=== PATIENT | female | born 1940 | race Caucasian/White ===

== ENCOUNTER 2017-07-28 16:49 | Emergency (ER) | payer MEDICAID, MEDICARE ==
[~2017-07-28] VITALS: Ht 157.5 cm; Wt 81.0 kg
[~2017-07-28 16:49] MED LIST: BACTDSB PO; FERR-72 PO; METO25 PO; OLAN7.5T9 PO; PARO-37 PO
[2017-07-28] MEDS ORDERED: ASPI81 PO (17:10)
[2017-07-28] MEDS ORDERED: LISI-659 PO (17:10)
[2017-07-28] MEDS ORDERED: MULT1TAB71 PO (17:10)
[2017-07-28] MEDS ORDERED: METF500T4 PO (17:10)
[2017-07-28] MEDS ORDERED: GLIP10 PO (17:10)
[2017-07-28 17:53] LABS: HEMATOCRIT 21.8 % (36-46); MEAN CORPUSCULAR HEMOGLOBIN 19.7 pg (26.0-34.0); MEAN CORPUSCULAR HGB CONC 30.7 G/dL (31.0-37.0); MEAN CORPUSCULAR VOLUME 64 fL (80-100); PLATELET COUNT (AUTO) 170 K/uL (150-450); RED BLOOD CELL COUNT(AUTO) 3.41 MIL/uL (4.00-5.20); WHITE BLOOD COUNT (AUTO) 4.4 K/uL (4.5-11.0)
[2017-07-28 17:58] LABS: ANION GAP 5 mmol/L (8-16); CALCIUM, TOTAL 8.7 mg/dL (8.8-10.5); CARBON DIOXIDE 28 mmol/L (22-29); CHLORIDE 108 mmol/L (98-107); CREATININE 0.87 mg/dL (0.60-1.30); GLOMERULAR FILTR. RATE CALC > 60 mL/min (>60); SODIUM SERUM 141 mmol/L (136-145); UREA NITROGEN, BLOOD 14 mg/dL (7-18)
[2017-07-28 18:02] LABS: HEMOGLOBIN 6.7 g/dL (12.0-16.0)
[2017-07-28 18:37] LABS: BAND NEUTROPHILS % (MANUAL) 1 % (1-5); EOSINOPHILS % (MANUAL) 1 % (1-6); LYMPHOCYTES % (MANUAL) 26 % (22-44); REACTIVE LYMPHOCYTES 3 % (0-0); TOTAL CELLS COUNTED 100
[2017-07-28 18:45] LABS: RBC MORPHOLOGY COMMENT ABNORMAL RBC MORPH
[2017-07-28 20:10] VITALS: BP 185/76
[2017-07-28 20:25] VITALS: BP 180/71
[2017-07-28 20:40] VITALS: BP 184/78
[2017-07-28 21:10] VITALS: BP 174/84
[2017-07-28 21:40] VITALS: BP 167/79
[2017-07-28 22:07] VITALS: BP 169/89
== END 2017-07-28 22:16 | disposition home or self-care (01) ==
LOC: EMS 16:52
DX: D64.9 Anemia, unspecified (principal); E11.9 Type 2 diabetes mellitus without complications; I10 Essential (primary) hypertension; Z79.82 Long term (current) use of aspirin
CPT/HCPCS: 36415; 36430; 80048; 85025; 86850; 86900; 86901; 86920; 99285; P9016

== ENCOUNTER 2017-09-02 14:19 | Inpatient (IN) | payer MEDICAID, MEDICARE ==
[~2017-09-02] VITALS: Ht 165.1 cm; Wt 78.1 kg
[~2017-09-02 14:19] MED LIST changes: +ASPI81 PO; -BACTDSB PO; +GLIP10 PO; +LISI-659 PO; +METF500T4 PO; +MULT1TAB71 PO
[2017-09-02 14:32] LABS: GLUCOSE,POINT OF CARE 201 MG/DL (70-110)
[2017-09-02 15:41] LABS: BASOPHILS % (AUTO) 0.1 % (0.0-2.0); EOSINOPHILS % (AUTO) 0.9 % (1.0-6.0); HEMATOCRIT 27.8 % (36-46); HEMOGLOBIN 8.8 g/dL (12.0-16.0); LYMPHOCYTES # (AUTO) 0.9 K/uL (1.0-4.8); MEAN CORPUSCULAR HEMOGLOBIN 24.3 pg (26.0-34.0); MEAN CORPUSCULAR HGB CONC 31.8 G/dL (31.0-37.0); MEAN CORPUSCULAR VOLUME 76 fL (80-100); MONOCYTES # (AUTO) 0.3 K/uL (0.1-1.0); NEUTROPHILS # (AUTO) 2.9 K/uL (1.8-7.7); PLATELET COUNT (AUTO) 170 K/uL (150-450); RED BLOOD CELL COUNT(AUTO) 3.64 MIL/uL (4.00-5.20); RED CELL DISTRIBUTION WIDTH 31.9 % (11.5-14.5)
[2017-09-02 15:44] LABS: CALCIUM, TOTAL 8.2 mg/dL (8.8-10.5); CREATININE 0.93 mg/dL (0.60-1.30); POTASSIUM 3.4 mmol/L (3.5-5.1)
[2017-09-02 15:57] LABS: ALBUMIN 2.1 g/dL (3.4-5.0); INR 1.1 (0.9-1.1); PROTHROMBIN TIME 11.8 SEC (9.4-11.6); TOTAL PROTEIN, SERUM 6.4 g/dL (6.4-8.2)
[2017-09-02 18:22] LABS: APPEARANCE,URINE TURBID (CLEAR); GLUCOSE, URINE (UA) NEGATIVE (NEGATIVE); KETONES,URINE NEGATIVE (NEGATIVE); LEUKOCYTE ESTERASE ,URINE MODERATE (NEGATIVE); NITRATE,URINE POSITIVE (NEGATIVE); OCCULT BLOOD,URINE MODERATE (NEGATIVE); PROTEIN,URINE SEE CONFIRM (NEGATIVE); UROBILINOGEN,URINE 0.2 mg/dL (<=1.0)
[2017-09-02 18:27] LABS: BILIRUBIN,URINE PRELIM. POSITIVE (NEGATIVE)
[2017-09-02 18:35] LABS: SULFOSALICYLIC ACID,URINE 2+ (Negative)
[2017-09-02 18:36] LABS: BACTERIA,URINE Many /HPF (None Seen); WBC,URINE >100 /HPF (0-5)
[2017-09-02] MEDS ORDERED: PANTOPRAZOLE SODIUM 40 MG/VIAL IVP ONE (18:45)
[2017-09-02] MEDS ORDERED: SODIUM CHLORIDE 0.9% 1,000 ML IV ONE (18:45)
[2017-09-02] MEDS ORDERED: LEVOFLOXACIN 500 MG/D5% WATER 100 ML IV ONE (18:45)
[2017-09-02] MEDS ORDERED: MORPHINE SULFATE 4 MG/ML SYRINGE IVP PRN (20:15)
[2017-09-02] MEDS ORDERED: 0.9% SODIUM CHLORIDE 10 ML SYRINGE IVP PRN (20:15)
[2017-09-02] MEDS ORDERED: ONDANSETRON HCL 4 MG/2 ML VIAL IVP PRN ×2 (20:15→23:30)
[2017-09-02] MEDS ORDERED: ACETAMINOPHEN 325 MG TABLET PO PRN (20:15)
[2017-09-02 21:11] VITALS: BP 154/84
[2017-09-02] MEDS: ZOLPIDEM TARTRATE 5 MG TABLET PO PRN (22:20)
[2017-09-02] MEDS ORDERED: MAGNESIUM HYDROXIDE SUSPENSION 30 ML UDCUP PO PRN (23:30)
[2017-09-02] MEDS ORDERED: MORPHINE SULFATE 2 MG/ML SYRINGE IVP PRN (23:30)
[2017-09-02] MEDS ORDERED: BISACODYL 10 MG RECTAL RECTAL SUPPOSITORY PR PRN (23:30)
[2017-09-02] MEDS ORDERED: ZOLPIDEM TARTRATE 5 MG TABLET PO PRN (23:30)
[2017-09-02 23:56] VITALS: BP 159/84
[2017-09-03] VITALS (8 sets, daily range): BP systolic 146–173; BP diastolic 64–95
[2017-09-03 00:44] LABS: HEMATOCRIT 25.1 % (36-46); HEMOGLOBIN 7.9 g/dL (12.0-16.0)
[2017-09-03 00:53] LABS: % IRON SATURATION 19.7 % (22-44)
[2017-09-03] MEDS: GlipiZIDE 10 MG TABLET PO SCH ×2 (06:20→17:30)
[2017-09-03 06:26] LABS: BASOPHILS % (AUTO) 0.4 % (0.0-2.0); EOSINOPHILS % (AUTO) 2.3 % (1.0-6.0); HEMATOCRIT 26.5 % (36-46); HEMOGLOBIN 8.5 g/dL (12.0-16.0); LYMPHOCYTES # (AUTO) 1.4 K/uL (1.0-4.8); LYMPHOCYTES % (AUTO) 36.3 % (22.0-44.0); MEAN CORPUSCULAR HEMOGLOBIN 24.7 pg (26.0-34.0); MEAN CORPUSCULAR HGB CONC 32.1 G/dL (31.0-37.0); MEAN CORPUSCULAR VOLUME 77 fL (80-100); MONOCYTES # (AUTO) 0.5 K/uL (0.1-1.0); MONOCYTES % (AUTO) 12.3 % (2.0-9.0); NEUTROPHILS # (AUTO) 1.9 K/uL (1.8-7.7); NEUTROPHILS % (AUTO) 48.7 % (40.0-70.0); PLATELET COUNT (AUTO) 152 K/uL (150-450); RED BLOOD CELL COUNT(AUTO) 3.45 MIL/uL (4.00-5.20); RED CELL DISTRIBUTION WIDTH 31.8 % (11.5-14.5)
[2017-09-03 07:00] LABS: ALANINE AMINOTRANSFERASE 14 U/L (12-78); ALBUMIN 1.9 g/dL (3.4-5.0); ALKALINE PHOSPHATASE 111 U/L (46-116); ANION GAP 4 mmol/L (8-16); ASPARTATE AMINOTRANSFERASE 28 U/L (15-37); BILIRUBIN,TOTAL 0.8 mg/dL (0.1-1.0); CARBON DIOXIDE 30 mmol/L (22-29); CHLORIDE 106 mmol/L (98-107); CREATININE 0.81 mg/dL (0.60-1.30); GLOMERULAR FILTR. RATE CALC > 60 mL/min (>60); GLUCOSE,RANDOM 99 mg/dL (70-110); POTASSIUM 3.3 mmol/L (3.5-5.1); SODIUM SERUM 140 mmol/L (136-145); UREA NITROGEN, BLOOD 13 mg/dL (7-18)
[2017-09-03] MEDS ORDERED: [UNRECOGNIZED DRUG - OTHER] PO SCH (09:00)
[2017-09-03] MEDS: FERROUS SULFATE 325 MG EC TABLET PO SCH (09:16)
[2017-09-03] MEDS: PARoxetine HCL 20 MG TABLET PO SCH (09:16)
[2017-09-03] MEDS: MULTIVITAMINS WITH MINERALS, THERAPEUTIC TABLET PO SCH (09:16)
[2017-09-03] MEDS: DOCUSATE SODIUM 100 MG CAPSULE PO SCH ×2 (09:16→20:43)
[2017-09-03] MEDS: OLANZapine 7.5 MG TABLET PO SCH (09:16)
[2017-09-03] MEDS: LISINOPRIL 20 MG TABLET PO SCH (09:17)
[2017-09-03] MEDS: HYDROCHLOROTHIAZIDE 25 MG TABLET PO SCH (09:17)
[2017-09-03] MEDS: PANTOPRAZOLE SODIUM 40 MG/VIAL IVP SCH (09:18)
[2017-09-03 09:23] LABS: FOLATE SERUM 11.4 ng/mL (5.4-)
[2017-09-03] MEDS: POTASSIUM CHLORIDE 20 MEQ ER TABLET PO PRN ×2 (11:14→18:52)
[2017-09-03 12:01] LABS: HEMATOCRIT 29.1 % (36-46); HEMOGLOBIN 9.4 g/dL (12.0-16.0)
[2017-09-03] MEDS ORDERED: HydrALAZINE HCL 20 MG/ML VIAL IVP SCH (16:30)
[2017-09-03 19:58] LABS: GLUCOMETER DEV NAME(LOC) 5S 1L; GLUCOSE,POINT OF CARE 101 MG/DL (70-110)
[2017-09-03 19:58] LABS: GLUCOMETER DEV NAME(LOC) 5S 1L; GLUCOSE,POINT OF CARE 85 MG/DL (70-110)
[2017-09-03 19:58] LABS: GLUCOMETER DEV NAME(LOC) 5S 1L; GLUCOSE,POINT OF CARE 114 MG/DL (70-110)
[2017-09-03 19:58] LABS: GLUCOMETER DEV NAME(LOC) 5S 2N; GLUCOSE,POINT OF CARE 64 MG/DL (70-110)
[2017-09-03] MEDS: ACETAMINOPHEN 325 MG TABLET PO PRN (20:38)
[2017-09-03] MEDS: HydrALAZINE HCL 20 MG/ML VIAL IVP PRN (20:39)
[2017-09-03] MEDS: INSULIN ASPART 100 UNITS/ML SQ PRN (20:57)
[2017-09-03] MEDS: ZOLPIDEM TARTRATE 5 MG TABLET PO PRN (22:42)
[2017-09-04] VITALS (7 sets, daily range): BP systolic 137–176; BP diastolic 67–80
[2017-09-04] MEDS: POTASSIUM CHL 10 MEQ/WATER 50 ML IV PRN ×3 (00:54→04:16)
[2017-09-04 03:52] LABS: GLUCOMETER DEV NAME(LOC) 5S 2N; GLUCOSE,POINT OF CARE 96 MG/DL (70-110)
[2017-09-04] MEDS: HydrALAZINE HCL 20 MG/ML VIAL IVP PRN ×2 (04:16→15:33)
[2017-09-04] MEDS: ACETAMINOPHEN 325 MG TABLET PO PRN ×2 (04:46→22:33)
[2017-09-04] MEDS: GlipiZIDE 10 MG TABLET PO SCH ×2 (05:59→17:48)
[2017-09-04] MEDS: INSULIN ASPART 100 UNITS/ML SQ PRN ×3 (05:59→20:40)
[2017-09-04 07:47] LABS: HEMATOCRIT 30.8 % (36-46); HEMOGLOBIN 9.5 g/dL (12.0-16.0); MEAN CORPUSCULAR HEMOGLOBIN 24.2 pg (26.0-34.0); MEAN CORPUSCULAR HGB CONC 30.9 G/dL (31.0-37.0); MEAN CORPUSCULAR VOLUME 78 fL (80-100); PLATELET COUNT (AUTO) 186 K/uL (150-450); RED BLOOD CELL COUNT(AUTO) 3.93 MIL/uL (4.00-5.20); RED CELL DISTRIBUTION WIDTH 31.7 % (11.5-14.5)
[2017-09-04] MEDS ORDERED: SODIUM CHLORIDE 0.9% 1,000 ML IV ONE ×2 (08:00→08:23)
[2017-09-04 08:03] LABS: GLUCOMETER DEV NAME(LOC) 5S 2N; GLUCOSE,POINT OF CARE 106 MG/DL (70-110)
[2017-09-04 08:05] LABS: ALANINE AMINOTRANSFERASE 16 U/L (12-78); ALBUMIN 2.2 g/dL (3.4-5.0); ALKALINE PHOSPHATASE 122 U/L (46-116); ANION GAP 7 mmol/L (8-16); ASPARTATE AMINOTRANSFERASE 38 U/L (15-37); BILIRUBIN,TOTAL 1.1 mg/dL (0.1-1.0); CALCIUM, TOTAL 8.5 mg/dL (8.8-10.5); CARBON DIOXIDE 28 mmol/L (22-29); CHLORIDE 105 mmol/L (98-107); CREATININE 0.75 mg/dL (0.60-1.30); GLOMERULAR FILTR. RATE CALC > 60 mL/min (>60); GLUCOSE,RANDOM 101 mg/dL (70-110); POTASSIUM 4.3 mmol/L (3.5-5.1); SODIUM SERUM 140 mmol/L (136-145); TOTAL PROTEIN, SERUM 6.8 g/dL (6.4-8.2); UREA NITROGEN, BLOOD 10 mg/dL (7-18)
[2017-09-04] MEDS ORDERED: MIDAZOLAM HCL 5 MG/ML VIAL ONE (08:34)
[2017-09-04] MEDS ORDERED: FentaNYL CITRATE-PF 100 MCG/2 ML VIAL ONE (08:34)
[2017-09-04] MEDS ORDERED: PEG 3350/NA SULF,BICARB,CL/KCL 4000 ML SOLUTION PO ONE (09:15)
[2017-09-04] MEDS ORDERED: BARIUM SULFATE 0.1% SUSPENSION 450 ML BOTTLE ONE (09:30)
[2017-09-04] MEDS: DOCUSATE SODIUM 100 MG CAPSULE PO SCH ×2 (10:08→20:38)
[2017-09-04] MEDS: MULTIVITAMINS WITH MINERALS, THERAPEUTIC TABLET PO SCH (10:08)
[2017-09-04] MEDS: PANTOPRAZOLE SODIUM 40 MG/VIAL IVP SCH (10:08)
[2017-09-04] MEDS: OLANZapine 7.5 MG TABLET PO SCH (10:08)
[2017-09-04] MEDS: PARoxetine HCL 20 MG TABLET PO SCH (10:08)
[2017-09-04] MEDS: FERROUS SULFATE 325 MG EC TABLET PO SCH (10:08)
[2017-09-04] MEDS: LISINOPRIL 20 MG TABLET PO SCH (10:08)
[2017-09-04] MEDS: HYDROCHLOROTHIAZIDE 25 MG TABLET PO SCH (10:08)
[2017-09-04 10:15] LABS: BAND NEUTROPHILS % (MANUAL) 5 % (1-5); LYMPHOCYTES % (MANUAL) 21 % (22-44); MONOCYTES % (MANUAL) 2 % (2-9); SEGMENTED NEUTROPHILS % 72 % (40-70)
[2017-09-04] MEDS ORDERED: IOVERSOL 350 MG/ML 100 ML VIAL ONE (11:45)
[2017-09-04] MEDS ORDERED: PROPOFOL 1% 20 ML VIAL IVP ONE (12:00)
[2017-09-04] MEDS ORDERED: LIDOCAINE HCL/PF 2% 5 ML VIAL INJ ONE (12:00)
[2017-09-04 13:35] LABS: GLUCOMETER DEV NAME(LOC) 5S 2N; GLUCOSE,POINT OF CARE 104 MG/DL (70-110)
[2017-09-04] MEDS: PROPRANOLOL HCL 10 MG TABLET PO SCH (20:41)
[2017-09-04] MEDS ORDERED: HydrALAZINE HCL 20 MG/ML VIAL IVP PRN (22:00)
[2017-09-04] MEDS: LEVOFLOXACIN 500 MG/D5% WATER 100 ML IV SCH (22:38)
[2017-09-04] MEDS: IPRATROPIUM BROMIDE 0.5 MG/2.5 ML NEB SOLUTION NEB PRN (22:39)
[2017-09-04] MEDS: ALBUTEROL SULFATE 2.5 MG/0.5 ML NEB SOLUTION NEB PRN (22:39)
[2017-09-05] VITALS (7 sets, daily range): BP systolic 121–150; BP diastolic 58–75
[2017-09-05 00:32] LABS: GLUCOMETER DEV NAME(LOC) 5S 1L; GLUCOSE,POINT OF CARE 151 MG/DL (70-110)
[2017-09-05 00:38] LABS: GLUCOMETER DEV NAME(LOC) 5S 2N; GLUCOSE,POINT OF CARE 124 MG/DL (70-110)
[2017-09-05] MEDS: HYDROCODONE/ACETAMINOPHEN 5-325 MG TABLET PO PRN ×2 (02:25→21:26)
[2017-09-05] MEDS ORDERED: FUROSEMIDE 20 MG/2 ML VIAL IVP ONE (03:15)
[2017-09-05] MEDS: GlipiZIDE 10 MG TABLET PO SCH ×3 (06:03→17:41)
[2017-09-05] MEDS: INSULIN ASPART 100 UNITS/ML SQ PRN (06:04)
[2017-09-05 06:56] LABS: HEMOGLOBIN 9.2 g/dL (12.0-16.0); MEAN CORPUSCULAR HEMOGLOBIN 24.7 pg (26.0-34.0); MEAN CORPUSCULAR HGB CONC 31.8 G/dL (31.0-37.0); MEAN CORPUSCULAR VOLUME 78 fL (80-100); PLATELET COUNT (AUTO) 177 K/uL (150-450); RED BLOOD CELL COUNT(AUTO) 3.74 MIL/uL (4.00-5.20); RED CELL DISTRIBUTION WIDTH 31.5 % (11.5-14.5)
[2017-09-05 07:21] LABS: ALBUMIN 2.1 g/dL (3.4-5.0); CALCIUM, TOTAL 8.4 mg/dL (8.8-10.5); CREATININE 0.91 mg/dL (0.60-1.30); POTASSIUM 4.2 mmol/L (3.5-5.1); TOTAL PROTEIN, SERUM 6.4 g/dL (6.4-8.2)
[2017-09-05] MEDS: FERROUS SULFATE 325 MG EC TABLET PO SCH (08:00)
[2017-09-05] MEDS: DOCUSATE SODIUM 100 MG CAPSULE PO SCH ×2 (08:10→21:01)
[2017-09-05] MEDS: MULTIVITAMINS WITH MINERALS, THERAPEUTIC TABLET PO SCH (08:10)
[2017-09-05] MEDS: OLANZapine 7.5 MG TABLET PO SCH (08:12)
[2017-09-05] MEDS: HYDROCHLOROTHIAZIDE 25 MG TABLET PO SCH (08:12)
[2017-09-05] MEDS: LISINOPRIL 20 MG TABLET PO SCH (08:12)
[2017-09-05] MEDS: PROPRANOLOL HCL 10 MG TABLET PO SCH ×2 (08:13→21:01)
[2017-09-05] MEDS: PANTOPRAZOLE SODIUM 40 MG/VIAL IVP SCH (08:13)
[2017-09-05] MEDS: PARoxetine HCL 20 MG TABLET PO SCH (08:13)
[2017-09-05 09:16] LABS: BAND NEUTROPHILS % (MANUAL) 6 % (1-5); LYMPHOCYTES % (MANUAL) 27 % (22-44); MONOCYTES % (MANUAL) 1 % (2-9); SEGMENTED NEUTROPHILS % 66 % (40-70)
[2017-09-05] MEDS ORDERED: SODIUM CHLORIDE 0.9% 1,000 ML IV ONE (11:30)
[2017-09-05] MEDS: DEXTROSE 50%-WATER 25 GM/50 ML SYRINGE IVP PRN (11:38)
[2017-09-05] MEDS ORDERED: PROPOFOL 1% 20 ML VIAL IVP ONE (12:00)
[2017-09-05 14:32] LABS: GLUCOMETER DEV NAME(LOC) SDS 5; GLUCOSE,POINT OF CARE 95 MG/DL (70-110)
[2017-09-05] MEDS ORDERED: *CLINICAL-LEVOFLOXACIN IVPB DOSING CLINICAL ONE (15:15)
[2017-09-05] MEDS: ACETAMINOPHEN 325 MG TABLET PO PRN (18:07)
[2017-09-05] MEDS: ALBUTEROL SULFATE 2.5 MG/0.5 ML NEB SOLUTION NEB PRN (20:11)
[2017-09-05] MEDS: IPRATROPIUM BROMIDE 0.5 MG/2.5 ML NEB SOLUTION NEB PRN (20:11)
[2017-09-05] MEDS: LEVOFLOXACIN 500 MG/D5% WATER 100 ML IV SCH (21:26)
[2017-09-06 04:49] VITALS: BP 124/75
[2017-09-06] MEDS: GlipiZIDE 10 MG TABLET PO SCH (06:20)
[2017-09-06] MEDS: DEXTROSE 50%-WATER 25 GM/50 ML SYRINGE IVP PRN (06:22)
[2017-09-06] MEDS: HYDROCODONE/ACETAMINOPHEN 5-325 MG TABLET PO PRN (06:22)
[2017-09-06 07:30] LABS: HEMOGLOBIN 9.1 g/dL (12.0-16.0); MEAN CORPUSCULAR HEMOGLOBIN 24.6 pg (26.0-34.0); MEAN CORPUSCULAR HGB CONC 31.2 G/dL (31.0-37.0); MEAN CORPUSCULAR VOLUME 79 fL (80-100); PLATELET COUNT (AUTO) 148 K/uL (150-450); RED BLOOD CELL COUNT(AUTO) 3.68 MIL/uL (4.00-5.20); RED CELL DISTRIBUTION WIDTH 30.6 % (11.5-14.5)
[2017-09-06 07:36] VITALS: BP 147/72
[2017-09-06 07:55] LABS: BILIRUBIN,TOTAL 0.6 mg/dL (0.1-1.0); CALCIUM, TOTAL 8.1 mg/dL (8.8-10.5); CREATININE 1.18 mg/dL (0.60-1.30); TOTAL PROTEIN, SERUM 6.3 g/dL (6.4-8.2)
[2017-09-06 08:32] LABS: BAND NEUTROPHILS % (MANUAL) 7 % (1-5); LYMPHOCYTES % (MANUAL) 19 % (22-44); MONOCYTES % (MANUAL) 4 % (2-9); SEGMENTED NEUTROPHILS % 70 % (40-70)
[2017-09-06] MEDS: FERROUS SULFATE 325 MG EC TABLET PO SCH (08:45)
[2017-09-06] MEDS: PROPRANOLOL HCL 10 MG TABLET PO SCH (08:46)
[2017-09-06] MEDS: PARoxetine HCL 20 MG TABLET PO SCH (08:46)
[2017-09-06] MEDS: PANTOPRAZOLE SODIUM 40 MG/VIAL IVP SCH (08:46)
[2017-09-06] MEDS: MULTIVITAMINS WITH MINERALS, THERAPEUTIC TABLET PO SCH (08:46)
[2017-09-06] MEDS: DOCUSATE SODIUM 100 MG CAPSULE PO SCH (08:46)
[2017-09-06] MEDS: HYDROCHLOROTHIAZIDE 25 MG TABLET PO SCH (08:47)
[2017-09-06] MEDS: OLANZapine 7.5 MG TABLET PO SCH (08:47)
[2017-09-06] MEDS: LISINOPRIL 20 MG TABLET PO SCH (08:48)
[2017-09-06] MEDS ORDERED: PANT40TA25 PO (11:07)
[2017-09-06] MEDS ORDERED: LEVO500 PO (11:07)
[2017-09-06] MEDS ORDERED: PROP10TA73 PO (11:08)
[2017-09-06] MEDS ORDERED: LISI-662 PO (11:09)
[2017-09-06 12:26] VITALS: BP 132/66
[2017-09-06 19:43] LABS: GLUCOMETER DEV NAME(LOC) 5S 1L; GLUCOSE,POINT OF CARE 75 MG/DL (70-110)
[2017-09-06 19:43] LABS: GLUCOMETER DEV NAME(LOC) 5S 1L; GLUCOSE,POINT OF CARE 78 MG/DL (70-110)
[2017-09-06 19:43] LABS: GLUCOMETER DEV NAME(LOC) 5S 1L; GLUCOSE,POINT OF CARE 50 MG/DL (70-110)
[2017-09-06 19:47] LABS: GLUCOMETER DEV NAME(LOC) 5S 1L; GLUCOSE,POINT OF CARE 67 MG/DL (70-110)
[2017-09-06 19:48] LABS: GLUCOMETER DEV NAME(LOC) 5S 1L; GLUCOSE,POINT OF CARE 167 MG/DL (70-110)
[2017-09-06 22:48] LABS: GLUCOMETER DEV NAME(LOC) 5S 2N; GLUCOSE,POINT OF CARE 52 MG/DL (70-110)
[2017-09-06 22:48] LABS: GLUCOMETER DEV NAME(LOC) 5S 2N; GLUCOSE,POINT OF CARE 55 MG/DL (70-110)
[2017-09-06 22:48] LABS: GLUCOMETER DEV NAME(LOC) 5S 2N; GLUCOSE,POINT OF CARE 118 MG/DL (70-110)
[2017-09-06 22:48] LABS: GLUCOMETER DEV NAME(LOC) 5S 2N; GLUCOSE,POINT OF CARE 114 MG/DL (70-110)
[2017-09-06 22:48] LABS: GLUCOMETER DEV NAME(LOC) 5S 2N; GLUCOSE,POINT OF CARE 185 MG/DL (70-110)
== END 2017-09-06 14:15 | disposition home or self-care (01) | DRG 377 ==
LOC: EMS 14:21 → 5S 19:48
PROVIDERS: ADMIT Hospitalist; ATTEND Hospitalist
PROC: 0DJ08ZZ Inspection of Upper Intestinal Tract, Via Natural or Artificial Opening Endoscopic (ICD-10-PCS; 2017-09-04)
PROC: 0DBN8ZX Excision of Sigmoid Colon, Via Natural or Artificial Opening Endoscopic, Diagnostic (ICD-10-PCS; principal; 2017-09-05 12:30)
DX: K92.2 Gastrointestinal hemorrhage, unspecified (principal); E43 Unspecified severe protein-calorie malnutrition; K76.6 Portal hypertension; E11.9 Type 2 diabetes mellitus without complications; D64.9 Anemia, unspecified; F20.9 Schizophrenia, unspecified; N39.0 Urinary tract infection, site not specified; D50.9 Iron deficiency anemia, unspecified; D12.3 Benign neoplasm of transverse colon; F32.9 Major depressive disorder, single episode, unspecified; I10 Essential (primary) hypertension; I85.00 Esophageal varices without bleeding; K31.89 Other diseases of stomach and duodenum; K52.9 Noninfective gastroenteritis and colitis, unspecified; K64.8 Other hemorrhoids; Z17.0 Estrogen receptor positive status [ER+]; Z79.82 Long term (current) use of aspirin; Z87.440 Personal history of urinary (tract) infections
CPT/HCPCS: 74178; 80074; 82105; 82271; 82378; 82607; 82746; 82962; 83540; 83550; 83605; 84132; 85014; 85018; 86301; 86304; 86850; 86900; 86901; 87040; 87086; 88305; 88312; 92610; 93005; 94640; 96365; 96375; 99285; C9113; J0360; J1940; J1956; J2250; J2704; J3010; J3480; J3490; J7030

== ENCOUNTER 2017-10-01 14:49 | Emergency (ER) | payer MEDICARE, MEDICAID ==
[~2017-10-01] VITALS: Ht 165.1 cm; Wt 72.7 kg
[~2017-10-01 14:49] MED LIST changes: +LEVO500 PO; +PANT40TA25 PO; +PROP10TA73 PO
[2017-10-01 15:07] LABS: GLUCOSE,POINT OF CARE 162 MG/DL (70-110)
[2017-10-01 15:44] LABS: HEMATOCRIT 28.3 % (36-46); HEMOGLOBIN 9.1 g/dL (12.0-16.0); MEAN CORPUSCULAR HEMOGLOBIN 25.9 pg (26.0-34.0); MEAN CORPUSCULAR HGB CONC 32.3 G/dL (31.0-37.0); MEAN CORPUSCULAR VOLUME 80 fL (80-100); PLATELET COUNT (AUTO) 137 K/uL (150-450); RED BLOOD CELL COUNT(AUTO) 3.52 MIL/uL (4.00-5.20); RED CELL DISTRIBUTION WIDTH 25.3 % (11.5-14.5); WHITE BLOOD COUNT (AUTO) 4.4 K/uL (4.5-11.0)
[2017-10-01 15:55] LABS: CALCIUM, TOTAL 8.1 mg/dL (8.8-10.5); CREATININE 0.91 mg/dL (0.60-1.30); POTASSIUM 3.5 mmol/L (3.5-5.1)
[2017-10-01 15:59] LABS: INR 1.1 (0.9-1.1); PROTHROMBIN TIME 11.6 SEC (9.4-11.6)
[2017-10-01 16:01] LABS: ALBUMIN 1.9 g/dL (3.4-5.0); BILIRUBIN,TOTAL 0.8 mg/dL (0.1-1.0); TOTAL PROTEIN, SERUM 6.8 g/dL (6.4-8.2)
[2017-10-01 16:07] LABS: BAND NEUTROPHILS % (MANUAL) 3 % (1-5); LYMPHOCYTES % (MANUAL) 28 % (22-44); RBC MORPHOLOGY COMMENT ABNORMAL RBC MORPH; TOTAL CELLS COUNTED 100
[2017-10-01] MEDS ORDERED: ALBUTEROL SULFATE 2.5 MG/0.5 ML NEB SOLUTION NEB ONE (16:30)
[2017-10-01] MEDS ORDERED: IPRATROPIUM BROMIDE 0.5 MG/2.5 ML NEB SOLUTION NEB ONE (16:30)
[2017-10-01 19:34] LABS: APPEARANCE,URINE CLOUDY (CLEAR); GLUCOSE, URINE (UA) NEGATIVE (NEGATIVE); KETONES,URINE NEGATIVE (NEGATIVE); LEUKOCYTE ESTERASE ,URINE NEGATIVE (NEGATIVE); OCCULT BLOOD,URINE MODERATE (NEGATIVE); PH,URINE 5.5 (5.0-8.0); PROTEIN,URINE SEE CONFIRM (NEGATIVE)
[2017-10-01 19:55] LABS: ADD UA MICROSCOPIC YES
[2017-10-01 19:56] LABS: SQUAMOUS EPITHELIAL CELL,UR Rare /LPF (None Seen); SULFOSALICYLIC ACID,URINE 1+ (Negative); WBC,URINE None Seen /HPF (0-5)
[2017-10-01 20:05] VITALS: BP 152/79
== END 2017-10-01 20:35 | disposition home or self-care (01) ==
LOC: EMS 14:50
DX: D64.9 Anemia, unspecified (principal); I10 Essential (primary) hypertension; E11.9 Type 2 diabetes mellitus without complications
CPT/HCPCS: 76856; 82962; 86850; 86900; 86901; 87086; 94640; 99285

== ENCOUNTER 2017-10-05 12:25 | Inpatient (IN) | payer MEDICARE, MEDICAID ==
[~2017-10-05] VITALS: Ht 160 cm; Wt 79.1 kg
[2017-10-05 12:52] LABS: GLUCOSE,POINT OF CARE 222 MG/DL (70-110)
[2017-10-05 15:06] LABS: EOSINOPHILS # (AUTO) 0.11 K/uL (0.00-0.70); EOSINOPHILS % (AUTO) 1.64 % (1.0-6.0); HEMATOCRIT 30.5 % (36-46); HEMOGLOBIN 9.6 g/dL (12.0-16.0); LYMPHOCYTES # (AUTO) 0.8 K/uL (1.0-4.8); LYMPHOCYTES % (AUTO) 12.6 % (22.0-44.0); MEAN CORPUSCULAR HEMOGLOBIN 25.6 pg (26.0-34.0); MEAN CORPUSCULAR HGB CONC 31.5 G/dL (31.0-37.0); MEAN CORPUSCULAR VOLUME 81 fL (80-100); MONOCYTES # (AUTO) 0.5 K/uL (0.1-1.0); MONOCYTES % (AUTO) 8.1 % (2.0-9.0); NEUTROPHILS % (AUTO) 77.6 % (40.0-70.0); PLATELET COUNT (AUTO) 150 K/uL (150-450); RED BLOOD CELL COUNT(AUTO) 3.76 MIL/uL (4.00-5.20); RED CELL DISTRIBUTION WIDTH 23.8 % (11.5-14.5); WHITE BLOOD COUNT (AUTO) 6.5 K/uL (4.5-11.0)
[2017-10-05 15:14] LABS: INR 1.1 (0.9-1.1); PROTHROMBIN TIME 11.4 SEC (9.4-11.6)
[2017-10-05 15:20] LABS: TROPONIN I < 0.02 ng/mL (0.00-0.05)
[2017-10-05 15:26] LABS: ANION GAP 7 mmol/L (8-16); CALCIUM, TOTAL 8.8 mg/dL (8.8-10.5); CARBON DIOXIDE 31 mmol/L (22-29); CHLORIDE 107 mmol/L (98-107); CREATININE 0.84 mg/dL (0.60-1.30); GLOMERULAR FILTR. RATE CALC > 60 mL/min (>60); POTASSIUM 3.9 mmol/L (3.5-5.1); SODIUM SERUM 145 mmol/L (136-145); UREA NITROGEN, BLOOD 16 mg/dL (7-18)
[2017-10-05 15:32] LABS: ALANINE AMINOTRANSFERASE 32 U/L (12-78); ALBUMIN 2.2 g/dL (3.4-5.0); ASPARTATE AMINOTRANSFERASE 37 U/L (15-37); BILIRUBIN,TOTAL 0.9 mg/dL (0.1-1.0); RBC MORPHOLOGY COMMENT ABNORMAL RBC MORPH; TOTAL PROTEIN, SERUM 7.4 g/dL (6.4-8.2)
[2017-10-05 15:33] LABS: AMMONIA < 10 umol/L (11-32)
[2017-10-05] MEDS ORDERED: FUROSEMIDE 40 MG/4 ML VIAL IVP ONE (16:45)
[2017-10-05] MEDS ORDERED: NITROGLYCERIN 2% (1 GM=INCH) PACKET TP ONE (17:15)
[2017-10-05] MEDS ORDERED: PANTOPRAZOLE SODIUM 80 MG in SODIUM CHLORIDE 0.9% 50 ML IV ONE (17:15)
[2017-10-05] MEDS ORDERED: PANTOPRAZOLE SODIUM 80 MG in SODIUM CHLORIDE 0.9% 100 ML IV SCH (17:15)
[2017-10-05] MEDS ORDERED: 0.9% SODIUM CHLORIDE 10 ML SYRINGE IVP PRN (18:30)
[2017-10-05] MEDS ORDERED: ONDANSETRON HCL 4 MG/2 ML VIAL IVP PRN (18:30)
[2017-10-05] MEDS ORDERED: ACETAMINOPHEN 325 MG TABLET PO PRN (18:30)
[2017-10-05 18:54] VITALS: BP 146/61
[2017-10-05 19:42] VITALS: BP 165/89
[2017-10-05 23:45] VITALS: BP 160/91
[2017-10-06 04:47] VITALS: BP 162/91
[2017-10-06 06:11] LABS: EOSINOPHILS % (AUTO) 1.4 % (1.0-6.0); HEMATOCRIT 26.3 % (36-46); HEMOGLOBIN 8.5 g/dL (12.0-16.0); LYMPHOCYTES # (AUTO) 1.3 K/uL (1.0-4.8); LYMPHOCYTES % (AUTO) 22.3 % (22.0-44.0); MEAN CORPUSCULAR HEMOGLOBIN 26.3 pg (26.0-34.0); MEAN CORPUSCULAR HGB CONC 32.5 G/dL (31.0-37.0); MEAN CORPUSCULAR VOLUME 81 fL (80-100); MONOCYTES # (AUTO) 0.8 K/uL (0.1-1.0); MONOCYTES % (AUTO) 13.4 % (2.0-9.0); NEUTROPHILS # (AUTO) 3.8 K/uL (1.8-7.7); NEUTROPHILS % (AUTO) 62.9 % (40.0-70.0); PLATELET COUNT (AUTO) 139 K/uL (150-450); RED BLOOD CELL COUNT(AUTO) 3.24 MIL/uL (4.00-5.20); RED CELL DISTRIBUTION WIDTH 23.9 % (11.5-14.5)
[2017-10-06 06:30] LABS: ANION GAP 4 mmol/L (8-16); CALCIUM, TOTAL 8.7 mg/dL (8.8-10.5); CARBON DIOXIDE 30 mmol/L (22-29); CHLORIDE 109 mmol/L (98-107); CHOL/HDL RATIO 3.1 (3.9-5.7); CREATININE 0.86 mg/dL (0.60-1.30); GLOMERULAR FILTR. RATE CALC > 60 mL/min (>60); SODIUM SERUM 143 mmol/L (136-145); THYROID STIMULATING HORMONE 11.67 uIU/mL (0.36-3.74); UREA NITROGEN, BLOOD 13 mg/dL (7-18)
[2017-10-06 06:55] LABS: RBC MORPHOLOGY COMMENT ABNORMAL RBC MORPH
[2017-10-06 07:16] VITALS: BP 164/75
[2017-10-06] MEDS ORDERED: DEXTROSE 50%-WATER 25 GM/50 ML SYRINGE IVP PRN (07:30)
[2017-10-06] MEDS: PANTOPRAZOLE SODIUM 40 MG DR TABLET PO SCH (08:37)
[2017-10-06] MEDS: FUROSEMIDE 20 MG/2 ML VIAL IVP SCH ×2 (08:37→20:48)
[2017-10-06] MEDS: CARVEDILOL 3.125 MG TABLET PO SCH ×2 (08:37→20:48)
[2017-10-06] MEDS: LISINOPRIL 5 MG TABLET PO SCH (08:37)
[2017-10-06 09:03] LABS: HEMOGLOBIN 8.8 g/dL (12.0-16.0)
[2017-10-06] MEDS ORDERED: IPRATROPIUM BROMIDE 0.5 MG/2.5 ML NEB SOLUTION NEB PRN (09:15)
[2017-10-06] MEDS ORDERED: ALBUTEROL SULFATE 2.5 MG/0.5 ML NEB SOLUTION NEB PRN (09:15)
[2017-10-06 10:59] VITALS: BP 165/65
[2017-10-06] MEDS: INSULIN ASPART 100 UNITS/ML SQ PRN ×2 (12:44→21:19)
[2017-10-06] MEDS ORDERED: MAGNESIUM SULFATE 2 GM in DEXTROSE 5%-WATER 50 ML IV PRN (15:45)
[2017-10-06] MEDS ORDERED: MAGNESIUM SULFATE 4 GM/WATER 100 ML IV PRN (15:45)
[2017-10-06] MEDS: MAGNESIUM OXIDE 400 MG TABLET PO PRN (16:57)
[2017-10-06 16:59] LABS: ALBUMIN 1.9 g/dL (3.4-5.0)
[2017-10-06 19:23] VITALS: BP 171/65
[2017-10-06 21:05] LABS: HEMATOCRIT 27.7 % (36-46); HEMOGLOBIN 8.9 g/dL (12.0-16.0)
[2017-10-06] MEDS ORDERED: ACETAMINOPHEN 325 MG TABLET PO PRN (22:30)
[2017-10-07 00:18] VITALS: BP 153/65
[2017-10-07 03:52] LABS: GLUCOSE COMMENT 1 Received Meds; GLUCOSE,POINT OF CARE 153 MG/DL (70-110)
[2017-10-07 04:08] VITALS: BP 159/72
[2017-10-07] MEDS: MAGNESIUM OXIDE 400 MG TABLET PO PRN (06:10)
[2017-10-07] MEDS ORDERED: LEVOTHYROXINE SODIUM 25 MCG TABLET PO SCH (06:30)
[2017-10-07 06:58] VITALS: BP 174/55
[2017-10-07 08:02] LABS: HEMATOCRIT 28.3 % (36-46); HEMOGLOBIN 9.2 g/dL (12.0-16.0)
[2017-10-07] MEDS: PANTOPRAZOLE SODIUM 40 MG DR TABLET PO SCH (08:43)
[2017-10-07] MEDS: LISINOPRIL 5 MG TABLET PO SCH (08:43)
[2017-10-07] MEDS: CARVEDILOL 3.125 MG TABLET PO SCH (08:43)
[2017-10-07] MEDS: FUROSEMIDE 20 MG/2 ML VIAL IVP SCH (08:43)
[2017-10-07 11:11] VITALS: BP 164/105
[2017-10-07] MEDS ORDERED: SODIUM CHLORIDE 0.9% 100 ML ONE (11:22)
[2017-10-07] MEDS: INSULIN ASPART 100 UNITS/ML SQ PRN (11:36)
[2017-10-08 00:27] LABS: GLUCOSE COMMENT 1 Received Meds; GLUCOSE,POINT OF CARE 187 MG/DL (70-110)
[2017-10-08 00:27] LABS: GLUCOSE COMMENT 1 Received Meds; GLUCOSE,POINT OF CARE 168 MG/DL (70-110)
[2017-10-08 00:27] LABS: GLUCOSE,POINT OF CARE 126 MG/DL (70-110)
[2017-10-08 00:27] LABS: GLUCOSE,POINT OF CARE 105 MG/DL (70-110)
== END 2017-10-07 13:30 | disposition home or self-care (01) | DRG 291 ==
LOC: EMS 12:27 → 5S 18:11
PROVIDERS: ADMIT Hospitalist; ATTEND Hospitalist
DX: I11.0 Hypertensive heart disease with heart failure (principal); E43 Unspecified severe protein-calorie malnutrition; E11.9 Type 2 diabetes mellitus without complications; D63.8 Anemia in other chronic diseases classified elsewhere; F20.9 Schizophrenia, unspecified; E03.9 Hypothyroidism, unspecified; I50.9 Heart failure, unspecified; F32.9 Major depressive disorder, single episode, unspecified; J44.9 Chronic obstructive pulmonary disease, unspecified; F41.9 Anxiety disorder, unspecified; N93.9 Abnormal uterine and vaginal bleeding, unspecified; K64.9 Unspecified hemorrhoids; F79 Unspecified intellectual disabilities; K74.60 Unspecified cirrhosis of liver; Z68.30 Body mass index [BMI] 30.0-30.9, adult; Z79.2 Long term (current) use of antibiotics; Z79.82 Long term (current) use of aspirin; Z79.899 Other long term (current) drug therapy
CPT/HCPCS: 74022; 74176; 76856; 82271; 82962; 83735; 84100; 84443; 85014; 85018; 87081; 93005; 93306; 96374; 96375; 97116; 97162; 97166; 97530; 99285; C9113; J1940; J3475; J7050; J7060